=== PATIENT | female | born 1960 | race Caucasian/White ===

== ENCOUNTER → 2017-06-03 | Outpatient (CLI) | payer OTHER | LOC: RAD 09:28 | PROVIDERS: ATTEND Internal Medicine | DX: K21.0 Gastro-esophageal reflux disease with esophagitis (principal); R13.13 Dysphagia, pharyngeal phase | CPT/HCPCS: 74230 ==

== ENCOUNTER → 2019-08-24 | Outpatient (CLI) | payer OTHER ==
[~2019-08-24] MED LIST: ALBU90AE INH; ARIP10TA33 PO; CELE200C PO; CHOL10003 PO; CLON-364 PO; DICY10CA3 PO; EVOL140S2 INJ; FAMO-79 PO; FOLI-17 PO; HYDR200T72 PO; LEVO50TA PO; LIOT5TAB10 PO; LIPA1CAP45 PO; LISI-167 PO; METH2.5T PO; ONDA8TAB9 PO; SUMA50TA3 PO; Trazodone PO; VENL150C PO; VITA400C43 PO; tylenol arthritis PO
[2019-08-24 13:55] LABS: ALANINE AMINOTRANSFERASE 58 U/L (12-78); ALBUMIN 3.6 g/dL (3.4-5.0); ANION GAP 5 mmol/L (5-15); CALCIUM 9.7 mg/dL (8.5-10.1); CHLORIDE 109 mmol/L (98-107); CREATININE 0.83 mg/dL (0.55-1.02)
[2019-08-24 13:57] LABS: ALKALINE PHOSPHATASE 87 U/L (45-117); BILIRUBIN,TOTAL 0.2 mg/dL (0.2-1.0); TOTAL PROTEIN 7.3 g/dL (6.4-8.2)
== END | disposition home or self-care (01) ==
LOC: STAR 12:29
PROVIDERS: ATTEND Internal Medicine Geriatric Medicine
DX: Z01.818 Encounter for other preprocedural examination (principal); K86.1 Other chronic pancreatitis; R10.9 Unspecified abdominal pain
CPT/HCPCS: 36415; 80053

== ENCOUNTER 2019-08-31 09:22 | Day surgery (SDC) | payer OTHER ==
[~2019-08-31] VITALS: Ht 165.1 cm; Wt 96.2 kg
[2019-08-31] MEDS ORDERED: CHLORHEXIDINE 15 ML UDC MM STA (09:36)
[2019-08-31 09:38] VITALS: BP 154/92
[2019-08-31] MEDS: LACTATED RINGERS 1,000 ML IV SCH ×2 (09:45→10:08)
[2019-08-31] MEDS ORDERED: PROPOFOL 10 MG/ML, 20ML ONE ×2 (12:31)
[2019-08-31] MEDS: FENTANYL PF 100 MCG/2ML IV PRN ×2 (12:51→12:59)
[2019-08-31] MEDS ORDERED: FENTANYL PF 100 MCG/2ML ONE (12:55)
== END 2019-08-31 14:15 | disposition home or self-care (01) ==
LOC: OUT 09:22
PROVIDERS: ATTEND Internal Medicine Geriatric Medicine
DX: K86.89 Other specified diseases of pancreas (principal); Z11.59 Encounter for screening for other viral diseases; K20.9 Esophagitis, unspecified; K86.1 Other chronic pancreatitis; E03.9 Hypothyroidism, unspecified; M06.9 Rheumatoid arthritis, unspecified; F41.9 Anxiety disorder, unspecified; F32.9 Major depressive disorder, single episode, unspecified; J45.909 Unspecified asthma, uncomplicated; Z88.5 Allergy status to narcotic agent
CPT/HCPCS: 43239; 43259; 88305; J2704; J3010; J7120